=== PATIENT | male | born 2000 | race Hispanic/Latino ===

== ENCOUNTER 2023-07-14 19:34 | Emergency (ER) | payer MEDICAID, OTHER ==
[~2023-07-14] VITALS: Ht 172.7 cm; Wt 97.1 kg
[2023-07-14] MEDS ORDERED: IBUP-2070 PO (20:36)
[2023-07-14] MEDS ORDERED: CYCL5TAB PO (20:36)
[2023-07-14 20:48] LABS: APPEARANCE,URINE CLEAR (CLEAR); BILIRUBIN,URINE NEGATIVE (NEGATIVE); COLOR,URINE YELLOW (YELLOW); GLUCOSE, URINE (UA) NEGATIVE (NEGATIVE); KETONES,URINE NEGATIVE (NEGATIVE); LEUKOCYTE ESTERASE ,URINE 25 Leu/uL (NEGATIVE); NITRATE,URINE NEGATIVE (NEGATIVE); OCCULT BLOOD,URINE NEGATIVE (NEGATIVE); PH,URINE 6.5 (5.0-8.0); PROTEIN,URINE NEGATIVE (NEGATIVE); UROBILINOGEN,URINE 3 mg/dL (0.2-1.0)
[2023-07-14 20:57] LABS: ADD UA MICROSCOPIC YES
[2023-07-14 20:58] LABS: BACTERIA,URINE RARE /HPF (None Seen); MUCUS,URINE RARE LPF (None Seen); RBC,URINE 0-1 /HPF (0-1); SQUAMOUS EPITHELIAL CELL,UR RARE /HPF (0-2)
[2023-07-14] MEDS ORDERED: CYCLOBENZAPRINE HCL 10 MG TABLET PO ONE (21:00)
[2023-07-14] MEDS ORDERED: KETOROLAC 60 MG VIAL (30MG/ML) IM ONE (21:00)
[2023-07-14] MEDS ORDERED: CEPH500T PO (21:09)
[2023-07-14] MEDS ORDERED: CEFTRIAXONE 1G VIAL IM ONE (21:30)
[2023-07-14 21:32] VITALS: BP 126/78; PULSE 86; RESP 18; O2SAT 98
== END 2023-07-14 21:31 | disposition home or self-care (01) ==
LOC: EDH 19:34
DX: S39.012A Strain of muscle, fascia and tendon of lower back, initial encounter (principal); N39.0 Urinary tract infection, site not specified; Z79.899 Other long term (current) drug therapy; X58.XXXA Exposure to other specified factors, initial encounter; Y93.89 Activity, other specified; Y92.89 Other specified places as the place of occurrence of the external cause; Y99.8 Other external cause status
CPT/HCPCS: 99284; 87088; 81001; 96372 ×2; J0696; J1885 ×2